=== PATIENT | female | born 1945 | race African-American/Black ===

== ENCOUNTER → 2016-12-09 | Outpatient (CLI) | payer MEDICARE ==
--- NOTE | 2016-12-09 14:07 | MM ---
Reason for exam: screening (asymptomatic). Last mammogram was performed 1 year and 6 months ago. History: Patient is postmenopausal. Family history of breast cancer in maternal cousin at age 55. Reductions of both breasts, 2000. Physical Findings: A clinical breast exam by your physician is recommended on an annual basis and results should be correlated with mammographic findings. MG Screening Mammo w CAD Bilateral CC, MLO, and XCCL view(s) were taken. Prior study comparison: June 10, 2015, left breast MG work up mamm w CAD LT. June 06, 2015, bilateral MG screening mammo w CAD. There are scattered fibroglandular densities. Benign calcifications. No significant changes when compared with prior studies. ASSESSMENT: Benign, BI-RAD 2 RECOMMENDATION: Routine screening mammogram of both breasts in 1 year.
== END | disposition home or self-care (01) ==
LOC: RADMAMWWP 09:40
PROVIDERS: ATTEND Family Medicine
DX: Z12.31 Encounter for screening mammogram for malignant neoplasm of breast (principal)

== ENCOUNTER → 2017-06-08 | Outpatient (CLI) | payer MEDICARE ==
--- NOTE | 2017-06-08 10:56 | WWHP ---
[facility] - HISTORY AND PHYSICAL DATE OF SERVICE: 06/08/2017 CHIEF COMPLAINT: The patient is here for her routine gynecologic exam. HPI: This is a 71-year-old, G3, P3 with an LMP of approximately 1991. The patient states it has been many years since her last pelvic exam. She denies any postmenopausal bleeding. She has been experiencing vulvar pruritus for about 2 months without discharge. She also thinks she felt some type of polyp like tissue toward the posterior aspect of the vaginal opening. She is otherwise without gynecologic complaints. PAST MEDICAL HISTORY: Coronary artery disease, chronic hypertension, type 2 diabetes, and arthritis. MEDICATIONS: 1. Metformin 500 mg b.i.d. 2. Amlodipine 1 daily. 3. Plavix 1 daily. 4. Vicodin generic t.i.d. p.r.n. 5. Aspirin 1 daily. ALLERGIES: Allergies to DARVON and DARVOCET to which caused nausea and pruritus. PAST SURGICAL HISTORY: Breast reduction surgery in the past, coronary artery stent placement in the past, cholecystectomy, collarbone surgery following dislocation and knee surgery in the past. She states she also had some type of a vaginal cyst removed years ago. PAST OB HISTORY: Three vaginal deliveries. PAST CALL OR CONTACT CENTRE MANAGER HISTORY: She was treated for gonorrhea many years ago. She has no other history of STDs in the past. She believes she had a vaginal cyst removed in the past that was found on examination many years ago. SOCIAL HISTORY: She quit smoking in 1986. She also quit drinking alcohol and denies drug use. She is single and is not seeing anybody at this time and is not sexually active. She does not work outside the home. FAMILY HISTORY: Both parents had heart attacks. Sister had HI as well. She has a cousin who had breast cancer and mother and grandmother had diabetes. REVIEW OF SYSTEMS: She has gained about 10 pounds over the last year. RESPIRATORY: She states she can get short of breath easily with exertion and she has discussed this with her primary care physician. She denies cardiac or GI problems. She denies maltreatment or falling. : She does have to wear a pad because of urinary leakage if she cannot get to the bathroom on time when she has the urge to go. PHYSICAL EXAM: Blood pressure 126/59, height 5 feet 2 inches, weight 170 pounds, temperature 96.3, pulse 66. This is a well-developed, heavyset, black female who is alert and oriented x3, in no acute distress. HEENT is within normal limits. NECK: Supple without mass or thyromegaly. CHEST AND LUNGS: Clear to auscultation. HEART: Regular rate and rhythm. Breasts are without mass or discharge. Axillary exam is negative for adenopathy. BACK: Negative for CVA tenderness. ABDOMEN: Soft, nontender, without palpable masses. PELVIC EXAM: External genitalia reveals an non-pigmented vulva extending from the clitoris to the perineum. There is no ulcerations or focal lesions. This appears more as a non-pigmented skin rather than leukoplakia. There are no abnormal masses and no polypoid growths. The patient was unable to locate or demonstrate to what she was feeling at this time. Cervix and vagina appear normal with mild atrophy. There is no unusual discharge. No odor is noted. There is no cervical motion tenderness. There is no evidence of prolapse. The uterus is mid position, nongravid size and nontender. There are no palpable adnexal masses or tenderness. Rectovaginal exam is negative for mass or tenderness and is negative for occult blood. EXTREMITIES: Nontender. IMPRESSION: 1. A 71-year-old menopausal female with vulvar pruritus. This is nonspecific vulvitis. Differential diagnosis will also include lichen sclerosus. Her symptoms seem to have been going on for about 2 months. 2. No polyps or polypoid tissue is noted in the vulvar area by examination today and the patient is no longer able to palpate this type of tissue, which she thought she felt during the past 2 months. 3. Multiple medical problems. PLAN: 1. Pap smear was performed. 2. Self breast examination was discussed. 3. Mammogram was done on 12/09/2016 and was benign. She will repeat this in 1 year. 4. Kenalog 0.1% cream b.i.d. to the affected area x2 weeks and then p.r.n. after that. She will be given a 30 gram tube to use. 5. She was asked to not over wash and to avoid scratching and rubbing in this area. 6. She will return in 2 months for re-evaluation. If symptoms are not improving, consider biopsy of the vulvar tissue. 7. She was also instructed to pay attention to what she is doing if she does notice the polyp like tissue from the vaginal opening or from the vulva. 8. She will also return in 1 year and p.r.n. BRYAN / BELLN: [id number] /
== END | disposition home or self-care (01) ==
DX: Z01.419 Encounter for gynecological examination (general) (routine) without abnormal findings (principal)

== ENCOUNTER → 2017-09-06 | Outpatient (CLI) | payer MEDICARE ==
--- NOTE | 2017-09-06 16:51 | P.PCN ---
Date of Procedure: 09/06/17 Preoperative Diagnosis: Non-pigmented vulvar changes with pruritis Postoperative Diagnosis: Same Procedure(s) Performed: Right vulvar biopsy Anesthesia: local Surgeon: Ty Hawk Estimated Blood Loss (ml): 1 Pathology: other (Right posterior inner labia majora biopsy) Condition: stable Disposition: same day Indications for Procedure: This was a 72 year old black female with a one year history of decreased inner vulvar pigmentation and a 5 month history of vulvar pruritis. Operative Findings: Generalized non-pigmented vulvar tissue involving the labia majora from the clitoral area to the perineum. Slight irregular texture at the posterior aspect of the right labia majora. Description of Procedure: The procedure was discussed with the patient as well as possible risks and complications including bleeding and infection. All questions were answered. The area was prepped with betadine and 1cc of 1% lidocained was used for local anesthesia. After determination of adequate anesthesia, a 4mm keye punch biopsy instrument was used to obtain a full thickness skin biopsy. An 11 blade was used to cut the base of the tissue and the tissue was sent for pathological evaluation. A silver nitrate stick was used to obtain hemostasis. Antibiotic ointment was applied and a dressing was applied. The patient tolerated the procedure well. The EBL was 1cc. There were no complications. The patient was instructed to leave the dressing on for 24 hours, then she will apply Neosporin ointment BID untill healed. She will call if problems.
== END | disposition home or self-care (01) ==
LOC: WWCWWP 15:08
PROVIDERS: ATTEND Obstetrics & Gynecology
DX: L90.0 Lichen sclerosus et atrophicus (principal)
CPT/HCPCS: 88305

== ENCOUNTER → 2018-07-17 | Outpatient (CLI) | payer MEDICARE ==
--- NOTE | 2018-07-18 13:35 | MM ---
Reason for exam: screening (asymptomatic). Last mammogram was performed 1 year and 7 months ago. History: Patient is postmenopausal. Family history of breast cancer in maternal cousin at age 55. Reductions of both breasts, 2000. Physical Findings: A clinical breast exam by your physician is recommended on an annual basis and results should be correlated with mammographic findings. MG 3D Screening Mammo W/Cad Bilateral CC and MLO view(s) were taken. Prior study comparison: December 09, 2016, bilateral MG screening mammo w CAD. June 10, 2015, left breast MG work up mamm w CAD LT. The breast tissue is heterogeneously dense. This may lower the sensitivity of mammography. Finding: There are typically benign round, diffuse/scattered and grouped calcifications in both breasts. There is no discrete abnormality. ASSESSMENT: Benign, BI-RAD 2 RECOMMENDATION: Routine screening mammogram of both breasts in 1 year.
== END | disposition home or self-care (01) ==
LOC: RADMAMWWP 14:41
PROVIDERS: ATTEND Family Medicine
DX: Z12.31 Encounter for screening mammogram for malignant neoplasm of breast (principal)
CPT/HCPCS: 77063; 77067

== ENCOUNTER 2019-04-13 12:35 | Day surgery (SDC) | payer MEDICARE, OTHER ==
[2019-04-13 08:54] LABS: Glucose,Whole Blood 85 mg/dL (75-99)
[2019-04-13 08:58] VITALS: RESP 16; TEMP 98.5
--- NOTE | 2019-04-13 10:01 | P.CARDCATH ---
Date of Procedure: 04/13/19 Preoperative Diagnosis: Chest pain with positive stress test Postoperative Diagnosis: Patent stent and mild diffuse coronary artery disease without any critical lesions Procedure(s) Performed: Left heart catheterization without left ventriculography Description of Procedure: HISTORY: This is a 73-year-old female with history of ischemic heart disease and previous stent placement of the circumflex was admitted to [facility] [place] with complaints of chest pain. Her cardiac enzymes were negative. Stress Cardiolite study showed evidence of ischemia involving the lateral wall. Patient is advised to have a cardiac catheterization for definitive diagnosis CONSENT:I have discussed the risks, benefits and alternative therapies for the above-mentioned procedure and for both sedation/analgesia as well as necessary blood product administration, if indicated, as they pertain to this patient. The patient has indicated understanding and acceptance of the risks and procedures discussed. PROCEDURE: Patient was brought to the lab in a fasting state. Patient was given some IV sedation. The right groin is infiltrated with lidocaine and right femoral artery was entered using Seldinger technique. A 6-Thai catheter was left in place and selective coronary arteriography and left ventriculography was performed. Patient tolerated the procedure well. Femoral angiogram was performed and Angio-Seal was applied for hemostasis. No immediate complications were noted and patient was transferred to [facility] in a stable condition Conscious Sedation: Versed 1mg Fentanyl 50 g Duration 17 minutes HEMODYNAMICS:. The aortic pressure is about 130/70. The left ventricle end- diastolic pressure is about 12-15. There was no gradient across the aortic valve SELECTIVE CORONARY ARTERIOGRAPHY: LEFT MAIN: This is normal in length and some ectatic changes without any stenosis THE LEFT ANTERIOR DESCENDING CORONARY ARTERY:. This is a fair caliber vessel with evidence of myocardial bridging involving midportion and mild disease involving the proximal and distal portion. There is no critical lesion in the LAD system. It gives rise to good-sized diagonal branch which is also free of occlusive disease THE LEFT CIRCUMFLEX AND IS CORONARY ARTERY:. This is a moderate caliber vessel giving rise to small caliber OM branch. The stent in mid circumflex is patent THE RIGHT CORONARY ARTERY:. This is a good caliber vessel with diffuse ectasia and mild coronary artery disease without any significant focal lesion LEFT VENTRICULOGRAPHY:. Not performed FINAL IMPRESSION:. Patent stent in the circumflex. Mild diffuse disease. Myocardial bridging of the mid LAD PLAN: Continuation of medical therapy and risk factor modification PROGNOSIS: Fair
[~2019-04-13 12:35] MED LIST: ALPRAZolam 0.25 MG TAB PO PRN; ALPRAZolam 0.5 MG TAB PO PRN; ASPIRIN 325 MG TAB ONE; ASPIRIN 325 MG TAB PO STA; ATORVASTATIN 80 MG TAB PO STA; HEPARIN SODIUM 1,000 UN/ML (10ML VL) ONE; HYDROcodone/APAP 10-325MG 1 EACH TAB PO PRN; IOPAMIDOL-370 100ML BTL INJ ONE; ISOSORBIDE MONONITRATE ER 30 MG TAB.ER.24H PO SCH; LIDOCAINE 1% INJ 10MG/ML (20 ML MDV) ONE; LIDOCAINE 1% INJ 10MG/ML (20 ML MDV) SQ ONE; MIDAZOLAM (PF) 2 MG/2 ML VIAL IV ONE; NITROGLYCERIN SL TABS 0.4 MG TAB SUBLINGUAL PRN; RX INFO: IV CONTRAST WAS GIVEN 1 EACH MISC MISCELLANE PRN; SODIUM CHLORIDE 0.9% 1,000 ML IV ONE; SODIUM CHLORIDE 0.9% 1,000 ML IV SCH; SODIUM CHLORIDE 0.9% 1,000 ML in EMPTY BAG 1 BAG IV ONE; VERAPAMIL 2.5 MG/ML 2 ML AMP ONE; fentaNYL (PF) 50 MCG/ML 2 ML AMP IV ONE; fentaNYL (PF) 50 MCG/ML 2 ML AMP ONE
[2019-04-13 14:03] VITALS: BP 126/63; PULSE 58
[2019-04-13] MEDS ORDERED: NON-FORMULARY DRUG (Omeprazole [Omeprazole] 20 MG) PO SCH (21:00)
[2019-04-13] MEDS ORDERED: METOPROLOL TARTRATE 25 MG TAB PO SCH (21:00)
[2019-04-13] MEDS ORDERED: ATORVASTATIN 80 MG TAB PO SCH (21:00)
[2019-04-14] MEDS ORDERED: LISINOPRIL 5 MG TAB PO SCH (09:00)
[2019-04-14] MEDS ORDERED: CLOPIDOGREL 75 MG TAB PO SCH (09:00)
[2019-04-14] MEDS ORDERED: ASPIRIN 325 MG TAB PO SCH (09:00)
[2019-04-15] MEDS ORDERED: metFORMIN 500 MG TAB PO SCH (07:30)
== END 2019-04-13 16:30 | disposition home or self-care (01) ==
LOC: CATHCVL 12:35
PROVIDERS: ATTEND Internal Medicine Cardiovascular Disease
DX: I25.110 Atherosclerotic heart disease of native coronary artery with unstable angina pectoris (principal); I10 Essential (primary) hypertension; Z95.5 Presence of coronary angioplasty implant and graft; K21.9 Gastro-esophageal reflux disease without esophagitis; E11.9 Type 2 diabetes mellitus without complications; E66.9 Obesity, unspecified; Z68.30 Body mass index [BMI] 30.0-30.9, adult; I25.2 Old myocardial infarction; Z90.49 Acquired absence of other specified parts of digestive tract; Z98.51 Tubal ligation status; Z87.891 Personal history of nicotine dependence; Z79.84 Long term (current) use of oral hypoglycemic drugs; Z79.02 Long term (current) use of antithrombotics/antiplatelets; Z79.82 Long term (current) use of aspirin; Z79.899 Other long term (current) drug therapy
CPT/HCPCS: 93458; C1769 ×4; C1760; C1894 ×2; J2001; J3010; Q9967; J2250

== ENCOUNTER → 2019-08-23 | Outpatient (CLI) | payer MEDICARE ==
--- NOTE | 2019-08-24 11:48 | MM ---
Reason for exam: screening (asymptomatic). Last mammogram was performed 1 year and 1 month ago. History: Patient is postmenopausal. Family history of breast cancer in maternal cousin at age 55. Reductions of both breasts, 2000. Physical Findings: A clinical breast exam by your physician is recommended on an annual basis and results should be correlated with mammographic findings. MG 3D Screening Mammo W/Cad Bilateral CC and MLO view(s) were taken. Prior study comparison: July 17, 2018, bilateral MG 3d screening mammo w/cad. December 09, 2016, bilateral MG screening mammo w CAD. The breast tissue is heterogeneously dense. This may lower the sensitivity of mammography. Finding: There are typically benign dystrophic, round, regional calcifications in both breasts. There is a chronic nodularity bilaterally. Increase in number of calcifications since July 17, 2018 and December 09, 2016. ASSESSMENT: Benign, BI-RAD 2 RECOMMENDATION: Routine screening mammogram of both breasts in 1 year.
== END | disposition home or self-care (01) ==
LOC: RADMAMWWP 09:02
PROVIDERS: ATTEND Family Medicine
DX: Z12.31 Encounter for screening mammogram for malignant neoplasm of breast (principal)
CPT/HCPCS: 77063; 77067

== ENCOUNTER → 2021-07-22 | Outpatient (CLI) | payer MEDICARE ==
--- NOTE | 2021-07-22 11:33 | MR ---
MR brain without contrast HISTORY: H81.09 M?ni?re's disease R42 Dizziness Correlation to prior brain MRI 06/29/2013 Scattered subcortical and periventricular hyperintensities are present and inversion recovery T2-weig hted sequences, approximately 10-15 lesions are present. There is no restricted diffusion. Inflammato ry changes present within the ethmoid air cells, sphenoid sinus, mucoperiosteal thickening present wi thin the maxillary sinuses. There are expected vascular flow voids. No hemorrhage or hydrocephalus. S ome hyperintensity on inversion recovery sequence present just lateral to the middle cerebellar pedun jesus, axial image 9-10 is thought to be artifactual. No corresponding signal abnormality on T1 or T2 w eighted sequences. Cortical atrophy is likely age-related. Cerebellopontine angles, corpus callosum, pituitary, cervical medullary junction are within normal limits. Orbits show symmetric appearance. IMPRESSION: Age-related changes of atrophy and chronic small vessel ischemia. Sinus disease. Addition al findings above. Follow-up as indicated.
== END | disposition home or self-care (01) ==
LOC: RADMRIMAIN 09:48
PROVIDERS: ATTEND Family Medicine
DX: I67.82 Cerebral ischemia (principal); G31.9 Degenerative disease of nervous system, unspecified; H81.09 Meniere's disease, unspecified ear; J32.8 Other chronic sinusitis
CPT/HCPCS: 70551

== ENCOUNTER → 2021-11-05 | Outpatient (CLI) | payer MEDICARE ==
--- NOTE | 2021-11-09 10:54 | MM ---
Reason for exam: screening (asymptomatic). Last mammogram was performed 2 years and 2 months ago. History: Patient is postmenopausal. Family history of breast cancer in maternal cousin at age 55. Reductions of both breasts, 2000. Physical Findings: A clinical breast exam by your physician is recommended on an annual basis and results should be correlated with mammographic findings. MG 3D Screening Mammo W/Cad Bilateral CC and MLO view(s) were taken. Prior study comparison: August 23, 2019, bilateral MG 3d screening mammo w/cad. July 17, 2018, bilateral MG 3d screening mammo w/cad. There are scattered fibroglandular densities. Some slowly progressive grouped course and round calcifications bilaterally. Scattered benign oil cyst calcifications. ASSESSMENT: Benign, BI-RAD 2 RECOMMENDATION: Routine screening mammogram of both breasts in 1 year.
== END | disposition home or self-care (01) ==
LOC: RADMAMWWP 10:35
PROVIDERS: ATTEND Family Medicine
DX: Z12.31 Encounter for screening mammogram for malignant neoplasm of breast (principal); Z78.0 Asymptomatic menopausal state; Z80.3 Family history of malignant neoplasm of breast
CPT/HCPCS: 77063; 77067

== ENCOUNTER → 2023-06-08 | Outpatient (CLI) | payer MEDICARE, OTHER ==
[2023-06-08 16:24] LABS: ALT 9 U/L (8-44); AST 19 U/L (13-35); Chol/HDL Ratio 2.87 Ratio; LDL Cholesterol,Calculated 75.2 mg/dL (0.0-131.0); VLDL Calculation 16.04 mg/dL (5.00-40.00)
== END | disposition home or self-care (01) ==
LOC: LABWHC1 10:58
PROVIDERS: ATTEND Internal Medicine Cardiovascular Disease
DX: E78.2 Mixed hyperlipidemia (principal)
CPT/HCPCS: 36415; 80061; 84450; 84460

== ENCOUNTER → 2023-07-14 | Outpatient (CLI) | payer MEDICARE ==
[2023-07-14 11:43] LABS: African American GFR (CKD) >90 (>60 ml/min/1.73 sqM); Blood Urea Nitrogen 13 mg/dL (7-17); Non-African American GFR(CKD) 89 (>60 ml/min/1.73 sqM)
--- NOTE | 2023-07-14 13:27 | CT ---
EXAMINATION TYPE: CT abdomen wo/w con DATE OF EXAM: 07/14/2023 COMPARISON: None HISTORY: Cyst of kidney. CT DLP: 756.0 mGycm CONTRAST: CT scan of the abdomen is performed with Oral Contrast and without and with IV Contrast, patient inje cted with 100 ml mL of Isovue 300. FINDINGS: LUNG BASES-: No visible nodule. No infiltrate. Moderate fixed hiatal hernia. LIVER/GB: The gallbladder surgically absent. No space occupying hepatic lesion. Biliary tree is of normal caliber. PANCREAS: No inflammation. No distinct mass. SPLEEN: No splenic enlargement. No lesion seen. ADRENALS: No nodule. No thickening. KIDNEYS/BLADDER: No hydronephrosis. No nephrolithiasis. Exophytic cyst upper pole right kidney alisha uring 8.5 x 7.5 cm. Additional cyst in lower pole right kidney measuring 11.4 x 10.9 cm. no solid mas ses seen. Urinary bladder grossly unremarkable. BOWEL: Normal appendix. Normal bowel caliber. No inflammation. LYMPH NODES: No greater than 1cm abdominal or pelvic lymph nodes are appreciated. AORTA: No significant abnormality. OSSEOUS STRUCTURES: No significant abnormality is seen. OTHER: No significant additional abnormality is seen. IMPRESSION: 1. Simple right renal cystic changes.
== END | disposition home or self-care (01) ==
LOC: RADCTMAIN 10:13
PROVIDERS: ATTEND Family Medicine
DX: N28.1 Cyst of kidney, acquired (principal)
CPT/HCPCS: 82565; 84520; 74170; 36415; Q9967

== ENCOUNTER → 2023-07-15 | Outpatient (CLI) | payer MEDICARE, OTHER ==
--- NOTE | 2023-07-18 08:44 | MM ---
Reason for Exam: Screening (asymptomatic). Last mammogram was performed 1 year(s) and 8 month(s) ago. Patient History: Menarche at age 13. First Full-Term at age 21. Postmenopausal. 2000, Bilateral Reduction. Maternal cousin had breast cancer, age 55. Risk Values: Tanya 5 year model risk: 1.8%. NCI Lifetime model risk: 3.7%. Prior Study Comparison: 07/17/2018 Bilateral Screening Mammogram, [facility]. 08/23/2019 Bilateral Screening Mammogram, [facility]. 11/05/2021 Bilateral Screening Mammogram, [facility]. Tissue Density: The breast tissue is heterogeneously dense. This may lower the sensitivity of mammography. Findings: Analyzed By CAD. There is no suspicious group of microcalcifications or new suspicious mass in either breast. Overall Assessment: Benign, BI-RAD 2 Management: Screening Mammogram of both breasts in 1 year. . Patient should continue monthly self-breast exams. A clinical breast exam by your physician is recommended on an annual basis. This exam should not preclude additional follow-up of suspicious palpable abnormalities. Note on Tanya scores and lifetime risk: 1. A Tanya score greater than 3% is considered moderate risk. If this is the case, consider specialist referral to assess eligibility for a risk reducing agent. 2. If overall lifetime risk for the development of breast cancer is 20% or higher, the patient may qualify for future screening with alternating mammogram and breast MRI. Electronically signed and approved by: Kedar Franks M.D. Radiologis
== END | disposition home or self-care (01) ==
LOC: RADMAMWWP 09:14
PROVIDERS: ATTEND Family Medicine
DX: Z12.31 Encounter for screening mammogram for malignant neoplasm of breast (principal); Z78.0 Asymptomatic menopausal state; Z80.3 Family history of malignant neoplasm of breast
CPT/HCPCS: 77063; 77067

== ENCOUNTER → 2024-03-08 | Outpatient (CLI) | payer MEDICARE ==
--- NOTE | 2024-03-19 05:49 | MR ---
EXAMINATION TYPE: MR brain wo/w con DATE OF EXAM: 03/08/2024 COMPARISON: 07/22/2021 HISTORY: Decline in cognitive function. CONTRAST: Performed utilizing 6 mL intravenous Gadavist gadolinium contrast. TECHNIQUE: Multiplanar, multiecho imaging on a 3.0 Amy magnet is performed through the brain. Stud y is performed within 24 hours of arrival to the hospital. The craniovertebral junction is normal. The pituitary is normal. Diffusion-weighted imaging is performed. No abnormal hyperintensity is present to suggest an acute i ntracranial infarct or acute ischemic change. Significant signal abnormality is not evident. No significant change from comparison. No focal atroph y evident Ventricles and sulci are appropriate for the patient age. Mild mucosal thickening is scattered through the paranasal sinuses. Some air-fluid levels are present . Correlate for sinusitis. IMPRESSION: 1. No suspicious signal abnormality or significant atrophy. 2. Scattered small air-fluid levels within the paranasal sinuses. Correlate for acute sinusitis.
== END | disposition home or self-care (01) ==
LOC: RADMRIMAIN 14:26
PROVIDERS: ATTEND Family Medicine
DX: R41.89 Other symptoms and signs involving cognitive functions and awareness (principal); J01.90 Acute sinusitis, unspecified
CPT/HCPCS: 70553; A9585

== ENCOUNTER → 2025-02-05 | Outpatient (CLI) | payer MEDICARE ==
[2025-02-05 15:14] LABS: Chol/HDL Ratio 2.16 Ratio; LDL Cholesterol,Calculated 51.3 mg/dL (0.0-131.0); VLDL Calculation 10.88 mg/dL (5.00-40.00)
[2025-02-05 15:15] LABS: ALT 18 U/L (8-44); AST 29 U/L (13-35)
== END | disposition home or self-care (01) ==
LOC: LABWHC1 11:26
PROVIDERS: ATTEND Internal Medicine Cardiovascular Disease
DX: E78.2 Mixed hyperlipidemia (principal)
CPT/HCPCS: 36415; 80061; 84450; 84460